=== PATIENT | female | born 1950 | race Caucasian/White ===

== ENCOUNTER 2016-10-24 15:39 | Emergency (ER) | payer MEDICARE, MEDICAID ==
[~2016-10-24] VITALS: Ht 157.5 cm; Wt 86.4 kg
[~2016-10-24 15:39] MED LIST: ASPI81TA3 PO; BECL8.7A6 IH; ESCI20TA PO; IPRA3AMP IH; LORA10CA PO; MONT10TA20 PO; NITR25CA2 PO; NYSTATIN POWDER TOPICAL; OXYB5TAB PO; OXYC-408 PO; RANITIDINE PO
[2016-10-24 15:42] VITALS: BP 165/77; PULSE 66; RESP 19; O2SAT 96
[2016-10-24 16:35] VITALS: BP 156/69; PULSE 63; RESP 18; O2SAT 96
== END 2016-10-24 16:36 | disposition left against medical advice (07) ==
LOC: SED 15:39
DX: Z53.21 Procedure and treatment not carried out due to patient leaving prior to being seen by health care provider (principal)